=== PATIENT | female | born 1945 | race American Indian/Alaskan Native ===

== ENCOUNTER 2020-01-14 06:44 | Day surgery (SDC) | payer MEDICARE ==
[2020-01-14] MEDS ORDERED: SODIUM CHLORIDE 0.9% 500 ML 500 ML ONE (07:22)
[2020-01-14 07:49] LABS: Basophils # (Auto) 0.1 K/mm3 (0.0-0.1); Hematocrit 35.6 % (30.3-42.9); Hemoglobin 12.1 gm/dl (10.1-14.3); Lymphocytes # (Auto) 1.1 K/mm3 (1.2-5.4); Mean Corpuscular HGB Conc 34 % (30-34); Mean Corpuscular Volume 101 fl (79-97); Monocytes # (Auto) 0.3 K/mm3 (0.0-0.8); Monocytes % (Auto) 4.5 % (0.0-7.3); Platelet Count 255 K/mm3 (140-440); Red Blood Count 3.54 M/mm3 (3.65-5.03); Red Cell Distribution Width 16.2 % (13.2-15.2)
[2020-01-14 07:56] LABS: INR 0.95 (0.87-1.13)
[2020-01-14] MEDS ORDERED: HEPARIN/NS 5000 UNIT/500ML 1,000 ML IR ONE (07:59)
[2020-01-14 08:10] LABS: BUN/Creatinine Ratio 23; Blood Urea Nitrogen 18 mg/dL (7-17); Calcium 9.7 mg/dL (8.4-10.2); Hemolysis Index 6
[2020-01-14] MEDS: SODIUM CHLORIDE 0.9% 500 ML 500 ML IV SCH ×2 (08:23→08:53)
[2020-01-14] MEDS: fentaNYL 100 MCG/2 ML INJ ONE ×2 (08:48→08:56)
[2020-01-14] MEDS: MIDAZOLAM 2 MG/2 ML INJ ONE ×2 (08:50→08:56)
[2020-01-14] MEDS: LIDOCAINE (2%) 20 MG/1 ML VIAL 20 ML MDV INFILTRATI ONE ×2 (08:51→09:00)
[2020-01-14] MEDS: HEPARIN 10,000 UNITS/10 ML VIAL ONE ×2 (08:52→09:03)
[2020-01-14] MEDS: VERAPAMIL 5 MG/2 ML INJ ONE ×2 (08:52→09:03)
[2020-01-14] MEDS: NITROGLYCERIN SYRINGE 3 ML ONE ×2 (08:53→09:03)
--- NOTE | 2020-01-14 09:40 | Cardiac Catherization Report ---
PERIPHERAL ANGIOGRAM INDICATION FOR PROCEDURE: The patient is a very pleasant 74-year-old female with significant right lower extremity claudication, known right SFA disease via ultrasound, here for diagnostic angiography. Risks, benefits, potential alternatives explained at length prior to obtaining informed consent. PROCEDURE IN DETAIL: The patient was brought to catheterization lab in a postoperative state, prepped and draped in sterile fashion. Blake's test of right hand was normal. A standard 6-Kyrgyz sheath placed in the left common femoral artery via modified Seldinger technique. All exchanges performed to exchange a J-tip guidewire. A standard pigtail catheter placed in the proximal abdominal aorta. Abdominal aortography was performed with DSA with power injection. The catheter was removed to the distal aorta. Aortography with computerized distal runoff was performed. We were unable to adequately assess the proximal iliacs bilaterally. We used a JR4 catheter. Selective third order bilateral iliac angiography was performed via hand injection. Catheter was removed from the body over a wire, sheath removed. Manual pressure was used to achieve hemostasis. No immediate complications. DATA: Aortic pressure is 140/80. The patient remained in normal sinus rhythm throughout the procedure. RESULTS: Root aortogram reveals moderate diffuse aortic atheroma with patent renals bilaterally. No evidence of AAA. Calcified vessel. we were unable to properly see the proximal iliacs. The common femorals are patent bilaterally. Right SFA with chronic total occlusion in the mid segment with reconstitution in the mid segment. Left BIOINFORMATICS SOFTWARE ENGINEER, SFA, popliteal with good 3-vessel runoff. Good normal popliteal and 3-vessel runoff on the right. Third order selective left iliac artery angiography reveals no significant disease proximally. No gradient on pullback. Same finding on the right common iliac selective angiogram. There were no immediate complications noted. CONCLUSIONS: 1. Moderate diffuse aortic atheroma without evidence of abdominal aortic aneurysm. 2. Patent renals bilaterally. 3. Calcified peripheral system. 4. 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 Consider staged COPIER REPAIR TECHNICIAN of right SFA. Continue current medications. Results of procedure explained to the patient and family. All questions and concerns were addressed. JOB# [id number] SBM/NTS
--- NOTE | 2020-01-14 09:44 | Short Stay Summary ---
Short Stay Documentation Date of service: 01/14/20 - History H&P: obtained from office - Allergies and Medications Current Medications: Allergies barium sulfate Allergy (Unverified 01/14/20 07:06) SEVERE RASH FOR SIX WEEKS ciprofloxacin [From Cipro] Allergy (Unverified 01/14/20 07:06) Rash erythromycin base [From Staticin] Allergy (Unverified 01/14/20 07:06) MUSCLE SPASMS ethyl alcohol [From Staticin] Allergy (Unverified 01/14/20 07:06) MUSCLE SPASMS ipodate [From Oragrafin] Allergy (Unverified 01/14/20 07:06) SEVERE RASH Penicillins Allergy (Unverified 01/14/20 07:06) Rash tetanus and diphtheria toxoids Allergy (Unverified 01/14/20 07:06) HEAT/SWELLING IN ARM tetracycline [From Sumycin] Allergy (Unverified 01/14/20 07:06) Rash Home Medications Medication Instructions Recorded Confirmed Last Taken Type Cetirizine HCl [Allergy Relief] 10 mg PO DAILY 01/14/20 01/14/20 01/13/20 History Cholecalciferol (Vitamin D3) 5,000 unit PO ONCE 01/14/20 01/14/20 01/13/20 History [Vitamin D3] Cyanocobalamin (Vitamin B-12) 5,000 mcg PO DAILY 01/14/20 01/14/20 01/13/20 History [Vitamin B12] Etodolac [Lodine] 400 mg PO BID 01/14/20 01/14/20 01/13/20 History FLUoxetine HCL [PROzac] 40 mg PO QDAY 01/14/20 01/14/20 01/13/20 History Gabapentin [Neurontin] 300 mg PO QHS 01/14/20 01/14/20 01/13/20 History HYDROcodone/APAP 5-325 [[place] 1 each PO Q6HR PRN 01/14/20 01/14/20 Unknown History 5/325] Ipratropium 0.06% [Atrovent] 2 puff IH BID PRN 01/14/20 01/14/20 Unknown History Levothyroxine [Synthroid] 150 mcg PO QAM 01/14/20 01/14/20 01/13/20 History Meclizine HCl 25 mg PO DAILY PRN 01/14/20 01/14/20 01/13/20 History Mercaptopurine 50 mg PO BID 01/14/20 01/14/20 01/13/20 History Metformin HCl [metFORMIN] 1,000 mg PO BID 01/14/20 01/14/20 01/13/20 History Mometasone/Formoterol [Dulera 100 2 puff IH BID 01/14/20 01/14/20 01/14/20 06:00 History Mcg-5 Mcg Inhaler] Montelukast [Singulair] 10 mg PO QPM 01/14/20 01/14/20 01/13/20 History Pantoprazole [Protonix] 40 mg PO QDAY 01/14/20 01/14/20 01/13/20 History Pitavastatin Calcium [LiVALO] 5 mg PO DAILY 01/14/20 01/14/20 01/13/20 History cilostazoL [Pletal] 100 mg PO DAILY 01/14/20 01/14/20 01/13/20 History Active Medications Sodium Chloride (Nacl 0.9% 500 Ml) 500 mls @ 50 mls/hr IV DIRECT JORDAN Stop: 01/14/20 17:59 Last Admin: 01/14/20 08:53 Dose: 50 mls/hr Documented by: - Brief post op/procedure progress note Date of procedure: 01/14/20 Pre-op diagnosis: PVD Post-op diagnosis: same Procedure: peripheral angiogram - see dictated cath report Anesthesia: local Estimated blood loss: none Condition: stable - Disposition Condition at discharge: Good Disposition: [id number] TO HOME OR SELFCARE - Discharge Diagnoses (1) PVD (peripheral vascular disease) Status: Chronic Short Stay Discharge Plan Activity: advance as tolerated Diet: low fat, low cholesterol, low salt Wound: open to air, keep clean and dry, per your surgeon's advice Follow up with: ERIC FONTAINE MD [Other] - 7 Days
[2020-01-14 12:07] VITALS: BP 147/60
== END 2020-01-14 12:20 | disposition home or self-care (01) ==
LOC: CATHLABREC 06:44
PROVIDERS: ATTEND Internal Medicine
DX: I70.211 Atherosclerosis of native arteries of extremities with intermittent claudication, right leg (principal); E78.00 Pure hypercholesterolemia, unspecified; I10 Essential (primary) hypertension; J44.9 Chronic obstructive pulmonary disease, unspecified; K21.9 Gastro-esophageal reflux disease without esophagitis; M19.90 Unspecified osteoarthritis, unspecified site; E03.9 Hypothyroidism, unspecified; F32.9 Major depressive disorder, single episode, unspecified; Z79.899 Other long term (current) drug therapy; Z79.84 Long term (current) use of oral hypoglycemic drugs; Z87.891 Personal history of nicotine dependence; Z98.41 Cataract extraction status, right eye; Z98.42 Cataract extraction status, left eye; Z90.49 Acquired absence of other specified parts of digestive tract; Z86.711 Personal history of pulmonary embolism; Z90.710 Acquired absence of both cervix and uterus; Z98.890 Other specified postprocedural states; Z86.2 Personal history of diseases of the blood and blood-forming organs and certain disorders involving the immune mechanism; Z82.49 Family history of ischemic heart disease and other diseases of the circulatory system
CPT/HCPCS: 36247; 36415; 75625; 75716; 80048; 85025; 85610; 85730; 99156; 99157; C1894; J1644; J2250; J3010; J7040; Q9967